=== PATIENT | female | born 1990 | race Caucasian/White ===

== ENCOUNTER 2017-04-05 11:20 | Emergency (ER) | payer MEDICAID ==
[2017-04-05 11:31] VITALS: BP 120/88
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
== END 2017-04-05 13:42 ==
LOC: JD.ED 11:20
DX: F19.20 Other psychoactive substance dependence, uncomplicated (principal); F17.210 Nicotine dependence, cigarettes, uncomplicated; Z88.1 Allergy status to other antibiotic agents; Z98.890 Other specified postprocedural states
CPT/HCPCS: 36415; 80053; 80306; 81001; 81025; 84443; 85025; 99284; G0480; 99283